=== PATIENT | female | born 1970 | race African-American/Black ===

== ENCOUNTER 2023-08-28 13:29 | Outpatient (CLI) | payer MEDICARE | END 2023-08-28 13:30 | disposition home or self-care (01) | LOC: CSHRAD 13:29 | PROVIDERS: ATTEND Neurological Surgery | DX: M48.50XA Collapsed vertebra, not elsewhere classified, site unspecified, initial encounter for fracture (principal); M47.816 Spondylosis without myelopathy or radiculopathy, lumbar region; M48.54XA Collapsed vertebra, not elsewhere classified, thoracic region, initial encounter for fracture; M47.814 Spondylosis without myelopathy or radiculopathy, thoracic region | CPT/HCPCS: 72072; 72100 ==